=== PATIENT | female | born 1970 | race Two or more races ===

== ENCOUNTER 2025-06-17 10:07 | Emergency (ER) | payer MEDICAID, SELFPAY ==
[2025-06-17 10:16] VITALS: BP 106/48; PULSE 59; RESP 16; TEMP 37.2; O2SAT 98; BMI 38.2
--- NOTE | 2025-06-17 11:41 | PC.NURSE ---
PT WAS SUPPOSED TO GO TO OUT PATIENT RADIOLOGY FOR CT WHICH WAS ORDERED BY PRIMARY MD. PT ENDED UP COMING TO ED WITH SON STATING THAT SHE NEEDED A CT. TRIAGE NURSE CONFIRMED WITH SON THAT PT WAS SUPPOSED TO COME TO ED FOR EXAM, PT STATED YES. WHEN PT WAS SPEAKING WITH THE PROVIDER IN TRIAGE SHE INFORMED THE PROVIDER THAT SHE DOES NOT NEED TO BE SEEN BY A DOCTOR SHE JUST NEEDS A CT SCAN. PT HAD AN OUTPATIENT REQUISITION FOR CT. INFORMED THAT IS SHE IS HAVING PAIN SHE CAN BE SEEN AND GET IT DONE WHILE SHE IS HERE BUT PT STATED SHE WAS HAVING TROUBLE WITH HER INSURANCE AND WAS ADAMANT ABOUT NOT BEING SEEN IN THE ED. AFTER THAT PT LEFT THE ER.
== END 2025-06-17 11:41 | disposition left against medical advice (07) ==
LOC: SERX 11:06
PROVIDERS: Emergency Provider Nurse Practitioner Family
DX: Z53.21 Procedure and treatment not carried out due to patient leaving prior to being seen by health care provider (principal)

== ENCOUNTER → 2025-07-11 | Outpatient (CLI) | payer MEDICAID, SELFPAY ==
--- NOTE | 2025-07-11 07:30 | XR_ITS ---
Examination: CT abdomen and pelvis without contrast. Coronal 3-D reconstructions. Sagittal 2-D reconstructions. Date and time of exam:July 11, 2025, 0738 hours INDICATIONS: Diagnosis urinary tract infections, diagnosis hydronephrosis unspecified CTDI: vol (mGy): 11.6 DLP: (mGycm): 688 Technique: Axial images of the abdomen have been obtained, 3 mm slice thickness Intravenous contrast material has not been administered. Low dose protocols were performed. One or more of the following dose reduction techniques were used; automated exposure control, adjustment of the mA and/or KV according to patient size, use of iterative reconstruction technique. Findings: Trace pericardial thickening. No visualized liver or splenic lesion No gallstones No pancreatic or adrenal mass. No renal or ureteral calculi, no hydronephrosis Aorta normal size Normal appendix 8mm fat-containing umbilical hernia. No bowel obstruction Scattered colonic diverticulosis Anteverted uterus No bladder mass or bladder calculi Moderate osteopenia IMPRESSION: No renal or ureteral calculi, no hydronephrosis Normal appendix No bladder mass or bladder calculi.
== END | disposition home or self-care (01) ==
LOC: CCTX 06:53
PROVIDERS: Referring Provider Surgery; Visit Provider Surgery
DX: N13.30 Unspecified hydronephrosis (principal)
CPT/HCPCS: 74176